=== PATIENT | female | born 1960 | race African-American/Black ===

== ENCOUNTER 2019-07-25 05:59 | Day surgery (SDC) ==
[2019-07-24 12:57] LABS: Basophils # 0.1 10*3/uL (0.0-0.2); Basophils % 0.5 % (0.0-0.8); Eosinophils # 0.2 10*3/uL (0.0-0.87); Eosinophils % 1.3 % (0.00-10.9); Immature Granulocytes % 0.7 %; Lymphocytes # 6.9 10*3/uL (1.4-4.0); Lymphocytes % 48.4 % (21.3-54.2); Mean Corpuscular HGB Conc 31.6 GM/DL (32-36); Mean Corpuscular Volume 85.6 FL (87-102); Monocytes % 6.8 % (1.7-12.7); Neutrophils % 42.3 % (38.7-73.9); Platelet Count 483 T/CUMM (130-400); Red Blood Count 4.44 MC/CUMM (3.8-5.5); Red Cell Distribution Width 13.3 % (9.3-17.3); White Blood Count 14.2 T/CUMM (4-12)
[2019-07-24 13:08] LABS: PT Patient Result 10.4 SECS (9.6-12.2); Partial Thromboplastin Time 30.6 SECS (20.8-36.0)
[2019-07-24 13:16] LABS: Bilirubin,Total 0.4 MG/DL (0.2-1.0); Calcium 9.2 MG/DL (8.5-10.1); Osmolality,Calculated 269.1 MOS/KG (273-304); Total Protein 8.3 G/DL (6.4-8.3)
[2019-07-24 13:35] LABS: Apearance,Urine Slightly Hazy (Clear); Bilirubin,Urine Small mg/dL (Negative); Blood, Urine Negative (Negative); Glucose,Urine (UA) Negative (Negative); Hyaline Casts,Urine 103 /LPF (0-3); Ketones,Urine 5 mg/dL (Negative); Mucus,Urine Many /LPF (Occasional); Nitrite,Urine Negative (Negative); Protein,Urine Negative; Squamous Epithelial Cell,Urine Occasional /HPF (0-10); Urine Color Amber (Yellow); Urine Specific Gravity 1.031 (1.001-1.035); WBC,Urine 3 /HPF (0-6)
[2019-07-25] MEDS ORDERED: VANCOMYCIN INJ 1,000 MG in SODIUM CHLORIDE 0.9% 250 ML IV ONE (06:30)
[2019-07-25] MEDS ORDERED: ceFAZolin 2,000 MG in PREMIX 1 EACH IV ONE (07:30)
[2019-07-25] MEDS ORDERED: VANCOMYCIN 1,000 MG VIAL ONE (07:52)
[2019-07-25] MEDS: LACTATED RINGERS 1,000 ML IV SCH ×4 (07:59→21:00)
[2019-07-25] MEDS ORDERED: PANTOPRAZOLE 40 MG TABLET PO ONE ×2 (08:41→09:27)
[2019-07-25] MEDS ORDERED: GABAPENTIN 400 MG CAPSULE PO ONE (08:41)
[2019-07-25] MEDS ORDERED: ACETAMINOPHEN 500 MG TABLET PO ONE (08:41)
[2019-07-25] MEDS ORDERED: DIAZEPAM 5 MG TABLET PO ONE (08:41)
[2019-07-25] MEDS ORDERED: ACETAMINOPHEN 500 MG TABLET ONE (09:27)
[2019-07-25] MEDS ORDERED: GABAPENTIN 400 MG CAPSULE ONE (09:28)
[2019-07-25] MEDS ORDERED: DIAZEPAM 5 MG TABLET ONE (09:28)
[2019-07-25] MEDS ORDERED: LIDOCAINE 1% 5 ML VIAL ONE (09:30)
[2019-07-25] MEDS ORDERED: DEXAMETHASONE 4 MG/1 ML VIAL ONE (09:30)
[2019-07-25] MEDS ORDERED: ROPIVACAINE 0.5% 30 ML VIAL ONE ×2 (09:30→09:39)
[2019-07-25] MEDS ORDERED: BACITRACIN OINT 0.9 GM PACK TOP ONE (10:35)
[2019-07-25] MEDS ORDERED: HydrOXYzine PAMOATE 25 MG CAPSULE PO PRN (11:07)
[2019-07-25] MEDS ORDERED: ZALEPLON 5 MG CAPSULE PO PRN (11:09)
[2019-07-25] MEDS ORDERED: oxyCODONE IR 5 MG TABLET PO PRN ×2 (11:09)
[2019-07-25] MEDS ORDERED: ONDANSETRON 4 MG/2 ML VIAL IV PRN (11:09)
[2019-07-25] MEDS ORDERED: MAGNESIUM HYDROXIDE SUSP 30 ML UDCUP PO PRN (11:09)
[2019-07-25] MEDS ORDERED: diphenhydrAMINE CAP 25 MG CAPSULE PO PRN (11:09)
[2019-07-25] MEDS ORDERED: LIDOCAINE 2% 5 ML VIAL ONE (11:22)
[2019-07-25] MEDS ORDERED: MIDAZOLAM 2 MG/2 ML VIAL ONE (11:22)
[2019-07-25] MEDS ORDERED: BUPIVACAINE SPINAL 0.75% 2 ML AMP SPINAL ONE (11:22)
[2019-07-25] MEDS ORDERED: TRANEXAMIC ACID 1,000 MG/10 ML VIAL ONE (11:22)
[2019-07-25] MEDS ORDERED: fentaNYL 100 MCG/2 ML VIAL ONE (11:22)
[2019-07-25] MEDS ORDERED: propofoL 200 MG/20 ML VIAL IV ONE (11:22)
[2019-07-25] MEDS ORDERED: SODIUM CHLORIDE 0.9% 250 ML IV ONE (11:23)
[2019-07-25] MEDS ORDERED: PHENYLEPHRINE 1 MG/10 ML SYRINGE IV ONE (11:23)
[2019-07-25] MEDS ORDERED: LACTATED RINGERS 1,000 ML IV ONE (11:23)
[2019-07-25] MEDS ORDERED: ACETAMINOPHEN 1,000 MG/100 ML VIAL IV ONE (11:34)
[2019-07-25] MEDS ORDERED: ACETAMINOPHEN INJ 1,000 MG in PREMIX 1 EACH IV ONE (11:56)
[2019-07-25] MEDS: KETOROLAC 30 MG/1 ML VIAL IV SCH ×2 (14:03→20:07)
[2019-07-25] MEDS: MORPHINE 4 MG/1 ML VIAL IV PRN ×2 (14:15→20:08)
[2019-07-25] MEDS: predniSONE 5 MG TABLET PO SCH (14:16)
[2019-07-25] MEDS: ceFAZolin 2,000 MG in PREMIX 1 EACH IV SCH ×2 (17:08→23:13)
[2019-07-25] MEDS: DOCUSATE SODIUM 100 MG CAPSULE PO SCH (20:06)
[2019-07-26] MEDS: MORPHINE 4 MG/1 ML VIAL IV PRN ×4 (00:55→21:41)
[2019-07-26] MEDS: KETOROLAC 30 MG/1 ML VIAL IV SCH ×2 (02:49→09:01)
[2019-07-26] MEDS: LACTATED RINGERS 1,000 ML IV SCH (04:55)
[2019-07-26] MEDS: FONDAPARINUX 2.5 MG/0.5 ML SYRINGE SUBCUT SCH (04:58)
[2019-07-26 06:32] LABS: Basophils % 0.2 % (0.0-0.8); Eosinophils % 0.2 % (0.00-10.9); Hematocrit 29.4 VOL% (35.7-47.0); Immature Granulocytes % 0.5 %; Immature Granulocytes Absolute 0.05 #; Lymphocytes # 2.3 10*3/uL (1.4-4.0); Lymphocytes % 21.2 % (21.3-54.2); Mean Corpuscular Volume 85.7 FL (87-102); Mean Platelet Volume 9.8 FL (9.6-12.0); Monocytes % 9.4 % (1.7-12.7); Neutrophils % 68.5 % (38.7-73.9); Red Cell Distribution Width 13.3 % (9.3-17.3); White Blood Count 10.8 T/CUMM (4-12)
[2019-07-26 06:34] LABS: Hemoglobin 9.4 GM/DL (12.0-16.0); Platelet Count 372 T/CUMM (130-400); Red Blood Count 3.43 MC/CUMM (3.8-5.5)
[2019-07-26 06:37] LABS: Calcium 8.4 MG/DL (8.5-10.1); Osmolality,Calculated 280.4 MOS/KG (273-304)
[2019-07-26] MEDS: VALSARTAN/HCTZ 160-12.5 MG TABLET PO SCH (08:38)
[2019-07-26] MEDS: DOCUSATE SODIUM 100 MG CAPSULE PO SCH ×2 (08:38→21:40)
[2019-07-26] MEDS: DULoxetine 30 MG CAPSULE PO SCH (08:38)
[2019-07-26] MEDS: predniSONE 5 MG TABLET PO SCH (08:38)
[2019-07-26] MEDS ORDERED: KETOROLAC 30 MG/1 ML VIAL IV SCH (09:00)
[2019-07-26] MEDS: CELECOXIB 200 MG CAPSULE PO SCH (16:20)
[2019-07-27] MEDS: MORPHINE 4 MG/1 ML VIAL IV PRN ×2 (01:27→04:52)
[2019-07-27] MEDS: FONDAPARINUX 2.5 MG/0.5 ML SYRINGE SUBCUT SCH (04:51)
[2019-07-27 05:42] LABS: Basophils % 0.5 % (0.0-0.8); Eosinophils # 0.2 10*3/uL (0.0-0.87); Hematocrit 28.6 VOL% (35.7-47.0); Hemoglobin 8.9 GM/DL (12.0-16.0); Immature Granulocytes % 0.2 %; Immature Granulocytes Absolute 0.02 #; Lymphocytes # 2.6 10*3/uL (1.4-4.0); Lymphocytes % 29.3 % (21.3-54.2); Mean Corpuscular HGB Conc 31.1 GM/DL (32-36); Mean Corpuscular Volume 86.1 FL (87-102); Mean Platelet Volume 9.7 FL (9.6-12.0); Monocytes % 8.3 % (1.7-12.7); Neutrophils % 59.7 % (38.7-73.9); Platelet Count 377 T/CUMM (130-400); Red Blood Count 3.32 MC/CUMM (3.8-5.5); Red Cell Distribution Width 13.4 % (9.3-17.3); White Blood Count 8.7 T/CUMM (4-12)
[2019-07-27] MEDS: DULoxetine 30 MG CAPSULE PO SCH (08:21)
[2019-07-27] MEDS: CELECOXIB 200 MG CAPSULE PO SCH (08:21)
[2019-07-27] MEDS: VALSARTAN/HCTZ 160-12.5 MG TABLET PO SCH (08:21)
[2019-07-27] MEDS: predniSONE 5 MG TABLET PO SCH (08:21)
[2019-07-27] MEDS: DOCUSATE SODIUM 100 MG CAPSULE PO SCH ×2 (08:21→20:08)
[2019-07-28] MEDS: FONDAPARINUX 2.5 MG/0.5 ML SYRINGE SUBCUT SCH (05:01)
[2019-07-28 05:05] LABS: Basophils % 0.3 % (0.0-0.8); Eosinophils # 0.3 10*3/uL (0.0-0.87); Eosinophils % 2.8 % (0.00-10.9); Hematocrit 28.1 VOL% (35.7-47.0); Hemoglobin 8.8 GM/DL (12.0-16.0); Immature Granulocytes % 0.5 %; Immature Granulocytes Absolute 0.05 #; Lymphocytes # 3.7 10*3/uL (1.4-4.0); Mean Corpuscular HGB Conc 31.3 GM/DL (32-36); Mean Corpuscular Volume 85.9 FL (87-102); Mean Platelet Volume 9.6 FL (9.6-12.0); Monocytes % 9.9 % (1.7-12.7); Neutrophils % 46.5 % (38.7-73.9); Platelet Count 384 T/CUMM (130-400); Red Blood Count 3.27 MC/CUMM (3.8-5.5); Red Cell Distribution Width 13.3 % (9.3-17.3); White Blood Count 9.3 T/CUMM (4-12)
[2019-07-28] MEDS: DULoxetine 30 MG CAPSULE PO SCH (08:20)
[2019-07-28] MEDS: VALSARTAN/HCTZ 160-12.5 MG TABLET PO SCH (08:21)
[2019-07-28] MEDS: CELECOXIB 200 MG CAPSULE PO SCH (08:21)
[2019-07-28] MEDS: predniSONE 5 MG TABLET PO SCH (08:23)
[2019-07-28] MEDS: DOCUSATE SODIUM 100 MG CAPSULE PO SCH (08:23)
[2019-07-28 11:58] VITALS: BP 111/76
== END 2019-07-28 16:30 | disposition home health service (06) ==
LOC: N.3E 05:59 → N.SDSINP 05:59 → N.OR 05:59 → N.3E 11:01 → N.OR 07-28 16:30
PROVIDERS: ATTEND Orthopaedic Surgery

== ENCOUNTER 2020-03-26 05:09 | Inpatient (IN) ==
[2020-03-21 11:34] LABS: Basophils # 0.1 10*3/uL (0.0-0.2); Basophils % 0.5 % (0.0-0.8); Eosinophils # 0.2 10*3/uL (0.0-0.87); Eosinophils % 1.6 % (0.00-10.9); Hematocrit 39.6 VOL% (35.7-47.0); Hemoglobin 12.4 GM/DL (12.0-16.0); Immature Granulocytes % 0.2 %; Immature Granulocytes Absolute 0.02 #; Lymphocytes # 3.9 10*3/uL (1.4-4.0); Lymphocytes % 37.5 % (21.3-54.2); Mean Corpuscular HGB Conc 31.3 GM/DL (32-36); Mean Corpuscular Volume 86.3 FL (87-102); Mean Platelet Volume 9.4 FL (9.6-12.0); Monocytes % 8.5 % (1.7-12.7); Neutrophils % 51.7 % (38.7-73.9); Platelet Count 474 T/CUMM (130-400); Red Blood Count 4.59 MC/CUMM (3.8-5.5); Red Cell Distribution Width 13.6 % (9.3-17.3); White Blood Count 10.5 T/CUMM (4-12)
[2020-03-21 11:45] LABS: PT Patient Result 10.9 SECS (9.8-11.9); Partial Thromboplastin Time 34.3 SECS (23.9-33.8)
[2020-03-21 12:04] LABS: Albumin 3.2 G/DL (3.4-5.0); Bilirubin,Total 0.5 MG/DL (0.2-1.0); Calcium 9.5 MG/DL (8.5-10.1); Osmolality,Calculated 275.4 MOS/KG (273-304); Total Protein 8.4 G/DL (6.4-8.3)
[2020-03-21 12:52] LABS: Bacteria,Urine Occasional /HPF (Few); Bilirubin,Urine Negative (Negative); Blood, Urine Negative (Negative); Glucose,Urine (UA) Negative (Negative); Ketones,Urine 5 mg/dL (Negative); Mucus,Urine Occasional /LPF (Occasional); Nitrite,Urine Negative (Negative); Protein,Urine Negative; RBC,Urine 4 /HPF (0-4); Squamous Epithelial Cell,Urine Occasional /HPF (0-10); Urine Appearance CLEAR (Clear); Urine Color Yellow (Yellow); Urine Specific Gravity 1.021 (1.001-1.035); WBC,Urine 2 /HPF (0-6)
[2020-03-26] MEDS ORDERED: VANCOMYCIN INJ 1,000 MG in SODIUM CHLORIDE 0.9% 250 ML IV ONE (06:00)
[2020-03-26] MEDS ORDERED: ceFAZolin 1,000 MG in SYRINGE 1 EACH IV ONE (07:00)
[2020-03-26] MEDS ORDERED: LACTATED RINGERS 1,000 ML IV SCH (07:30)
[2020-03-26] MEDS ORDERED: DIAZEPAM 5 MG TABLET PO STA (07:40)
[2020-03-26] MEDS ORDERED: ceFAZolin 1,000 MG VIAL ONE (07:53)
[2020-03-26] MEDS ORDERED: VANCOMYCIN 1,000 MG VIAL ONE (07:53)
[2020-03-26] MEDS ORDERED: BUPIVACAINE SPINAL 0.75% 2 ML AMP SPINAL ONE (09:09)
[2020-03-26] MEDS ORDERED: ROPIVACAINE 0.5% 30 ML VIAL ONE (09:09)
[2020-03-26] MEDS ORDERED: LIDOCAINE 1% 5 ML VIAL ONE (09:10)
[2020-03-26] MEDS ORDERED: TRANEXAMIC ACID 1,000 MG/10 ML VIAL ONE (09:10)
[2020-03-26] MEDS ORDERED: DEXMEDETOMIDINE 200 MCG/2 ML VIAL ONE (09:10)
[2020-03-26] MEDS ORDERED: DEXAMETHASONE 4 MG/1 ML VIAL ONE ×2 (09:10→12:11)
[2020-03-26] MEDS ORDERED: BACITRACIN OINT 0.9 GM PACK TOP ONE (09:24)
[2020-03-26] MEDS ORDERED: ZALEPLON 5 MG CAPSULE PO PRN (10:31)
[2020-03-26] MEDS ORDERED: MAGNESIUM HYDROXIDE SUSP 30 ML UDCUP PO PRN (10:31)
[2020-03-26] MEDS ORDERED: diphenhydrAMINE CAP 25 MG CAPSULE PO PRN (10:31)
[2020-03-26] MEDS ORDERED: ONDANSETRON 4 MG/2 ML VIAL IV PRN ×2 (10:31→12:13)
[2020-03-26] MEDS ORDERED: ONDANSETRON 4 MG/2 ML VIAL ONE ×2 (12:07→12:11)
[2020-03-26] MEDS ORDERED: HYDROmorphone 2 MG/1 ML VIAL ONE (12:07)
[2020-03-26] MEDS: HYDROmorphone 2 MG/1 ML VIAL IV PRN ×4 (12:09→12:40)
[2020-03-26] MEDS ORDERED: propofoL 200 MG/20 ML VIAL IV ONE (12:10)
[2020-03-26] MEDS ORDERED: LIDOCAINE 2% 5 ML VIAL ONE (12:10)
[2020-03-26] MEDS ORDERED: ROCURONIUM 100 MG/10 ML VIAL IV ONE (12:11)
[2020-03-26] MEDS ORDERED: fentaNYL 100 MCG/2 ML VIAL ONE (12:11)
[2020-03-26] MEDS ORDERED: MIDAZOLAM 2 MG/2 ML VIAL ONE (12:11)
[2020-03-26] MEDS ORDERED: LACTATED RINGERS 1,000 ML IV ONE (12:11)
[2020-03-26] MEDS ORDERED: SEVOFLURANE 1 UNIT/15 MINUTE INH ONE (12:11)
[2020-03-26] MEDS ORDERED: GLYCOPYRROLATE 0.4 MG/2 ML VIAL ONE (12:11)
[2020-03-26] MEDS ORDERED: NEOSTIGMINE 10 MG/10 ML VIAL ONE (12:11)
[2020-03-26] MEDS ORDERED: PHENYLEPHRINE 1 MG/10 ML SYRINGE IV ONE (12:12)
[2020-03-26] MEDS ORDERED: KETOROLAC 30 MG/1 ML VIAL ONE (13:01)
[2020-03-26] MEDS: KETOROLAC 30 MG/1 ML VIAL IV SCH ×2 (13:01→16:38)
[2020-03-26] MEDS ORDERED: MORPHINE 10 MG/1 ML VIAL ONE (14:52)
[2020-03-26] MEDS: MORPHINE 4 MG/1 ML VIAL IV PRN ×3 (14:54→22:45)
[2020-03-26] MEDS: ceFAZolin 1,000 MG in SYRINGE 1 EACH IV SCH (16:37)
[2020-03-26] MEDS: LEVOFLOXACIN 500 MG TABLET PO SCH (17:57)
[2020-03-26] MEDS: LACTATED RINGERS 1,000 ML IV SCH (19:02)
[2020-03-26] MEDS: DOCUSATE SODIUM 100 MG CAPSULE PO SCH (21:01)
[2020-03-26] MEDS: DULoxetine 30 MG CAPSULE PO SCH (21:01)
[2020-03-26] MEDS: LACTOBACILLUS RHAMNOSUS GG CAPSULE PO SCH (21:02)
[2020-03-27] MEDS ORDERED: ceFAZolin 1,000 MG in SYRINGE 1 EACH IV SCH (01:30)
[2020-03-27] MEDS: ceFAZolin 1,000 MG in SYRINGE 1 EACH IV SCH (01:51)
[2020-03-27] MEDS: KETOROLAC 30 MG/1 ML VIAL IV SCH ×2 (02:01→07:30)
[2020-03-27] MEDS: MORPHINE 4 MG/1 ML VIAL IV PRN ×3 (04:16→11:17)
[2020-03-27] MEDS: LACTATED RINGERS 1,000 ML IV SCH ×2 (04:21→07:45)
[2020-03-27 06:16] LABS: Basophils % 0.1 % (0.0-0.8); Hemoglobin 9.7 GM/DL (12.0-16.0); Immature Granulocytes % 0.5 %; Immature Granulocytes Absolute 0.09 #; Lymphocytes % 12.2 % (21.3-54.2); Mean Corpuscular HGB Conc 31.3 GM/DL (32-36); Mean Corpuscular Volume 87.1 FL (87-102); Monocytes % 6.1 % (1.7-12.7); Neutrophils % 81.1 % (38.7-73.9); Platelet Count 350 T/CUMM (130-400); Red Blood Count 3.56 MC/CUMM (3.8-5.5); Red Cell Distribution Width 13.4 % (9.3-17.3); White Blood Count 16.5 T/CUMM (4-12)
[2020-03-27 06:48] LABS: Calcium 8.5 MG/DL (8.5-10.1); Osmolality,Calculated 277.5 MOS/KG (273-304)
[2020-03-27] MEDS: FONDAPARINUX 2.5 MG/0.5 ML SYRINGE SUBCUT SCH (07:14)
[2020-03-27] MEDS: OLMESARTAN 20 MG TABLET PO SCH (08:42)
[2020-03-27] MEDS: DULoxetine 30 MG CAPSULE PO SCH ×2 (08:44→21:25)
[2020-03-27] MEDS: hydroCHLOROthiazide 12.5 MG CAPSULE PO SCH (08:44)
[2020-03-27] MEDS: LEVOFLOXACIN 500 MG TABLET PO SCH (08:45)
[2020-03-27] MEDS: LACTOBACILLUS RHAMNOSUS GG CAPSULE PO SCH ×2 (08:45→21:25)
[2020-03-27] MEDS: DOCUSATE SODIUM 100 MG CAPSULE PO SCH ×2 (08:45→21:25)
[2020-03-27 12:43] LABS: Cyclic Citrull Peptide Interp Negative
[2020-03-28] MEDS: FONDAPARINUX 2.5 MG/0.5 ML SYRINGE SUBCUT SCH (05:14)
[2020-03-28 05:34] LABS: Basophils % 0.2 % (0.0-0.8); Eosinophils # 0.1 10*3/uL (0.0-0.87); Eosinophils % 1.1 % (0.00-10.9); Hematocrit 31.1 VOL% (35.7-47.0); Hemoglobin 9.6 GM/DL (12.0-16.0); Immature Granulocytes % 0.4 %; Immature Granulocytes Absolute 0.04 #; Lymphocytes # 2.5 10*3/uL (1.4-4.0); Lymphocytes % 24.2 % (21.3-54.2); Mean Corpuscular HGB Conc 30.9 GM/DL (32-36); Mean Corpuscular Volume 87.4 FL (87-102); Mean Platelet Volume 9.6 FL (9.6-12.0); Monocytes % 6.9 % (1.7-12.7); Neutrophils % 67.2 % (38.7-73.9); Platelet Count 309 T/CUMM (130-400); Red Blood Count 3.56 MC/CUMM (3.8-5.5); Red Cell Distribution Width 13.7 % (9.3-17.3); White Blood Count 10.2 T/CUMM (4-12)
[2020-03-28 06:17] LABS: Calcium 8.6 MG/DL (8.5-10.1); Osmolality,Calculated 272.8 MOS/KG (273-304)
[2020-03-28] MEDS: MORPHINE 4 MG/1 ML VIAL IV PRN (07:54)
[2020-03-28] MEDS ORDERED: INFLUENZA VIRUS VACCINE 0.5 ML SYRINGE IM ONE (09:00)
[2020-03-28] MEDS: LACTOBACILLUS RHAMNOSUS GG CAPSULE PO SCH ×2 (09:07→20:47)
[2020-03-28] MEDS: DOCUSATE SODIUM 100 MG CAPSULE PO SCH ×2 (09:07→20:47)
[2020-03-28] MEDS: DULoxetine 30 MG CAPSULE PO SCH ×2 (09:07→20:46)
[2020-03-28] MEDS: OLMESARTAN 20 MG TABLET PO SCH (09:08)
[2020-03-28] MEDS: hydroCHLOROthiazide 12.5 MG CAPSULE PO SCH (09:08)
[2020-03-28] MEDS: LEVOFLOXACIN 500 MG TABLET PO SCH (09:08)
[2020-03-29] MEDS: FONDAPARINUX 2.5 MG/0.5 ML SYRINGE SUBCUT SCH (05:41)
[2020-03-29 06:03] LABS: Basophils % 0.3 % (0.0-0.8); Eosinophils # 0.3 10*3/uL (0.0-0.87); Eosinophils % 2.3 % (0.00-10.9); Hematocrit 32.6 VOL% (35.7-47.0); Hemoglobin 9.9 GM/DL (12.0-16.0); Immature Granulocytes % 0.3 %; Immature Granulocytes Absolute 0.04 #; Lymphocytes # 3.4 10*3/uL (1.4-4.0); Lymphocytes % 29.2 % (21.3-54.2); Mean Corpuscular HGB Conc 30.4 GM/DL (32-36); Mean Corpuscular Volume 87.9 FL (87-102); Mean Platelet Volume 9.6 FL (9.6-12.0); Monocytes % 9.2 % (1.7-12.7); Neutrophils % 58.7 % (38.7-73.9); Platelet Count 375 T/CUMM (130-400); Red Blood Count 3.71 MC/CUMM (3.8-5.5); Red Cell Distribution Width 13.5 % (9.3-17.3); White Blood Count 11.5 T/CUMM (4-12)
[2020-03-29] MEDS: OLMESARTAN 20 MG TABLET PO SCH (09:01)
[2020-03-29] MEDS: DOCUSATE SODIUM 100 MG CAPSULE PO SCH (09:01)
[2020-03-29] MEDS: LACTOBACILLUS RHAMNOSUS GG CAPSULE PO SCH (09:02)
[2020-03-29] MEDS: DULoxetine 30 MG CAPSULE PO SCH (09:02)
[2020-03-29] MEDS: LEVOFLOXACIN 500 MG TABLET PO SCH (09:02)
[2020-03-29] MEDS: hydroCHLOROthiazide 12.5 MG CAPSULE PO SCH (09:02)
[2020-03-29 11:15] VITALS: BP 134/78
[2020-03-29] MEDS ORDERED: INFLUENZA VIRUS VACCINE 0.5 ML SYRINGE IM ONE (11:38)
== END 2020-03-29 13:45 | disposition home health service (06) | DRG 470 ==
LOC: N.OR 05:09 → N.SDSINP 05:13 → N.3E 16:20
PROVIDERS: ADMIT Orthopaedic Surgery; ATTEND Orthopaedic Surgery